=== PATIENT | female | born 1950 | race Hispanic/Latino ===

== ENCOUNTER 2023-06-26 10:44 | Observation (INO) | payer MEDICARE, MEDICAID ==
[2023-06-26] VITALS (45 sets, daily range): BP systolic 74–154; BP diastolic 47–96
[~2023-06-26] VITALS: Ht 152.4 cm; Wt 86.0 kg
--- NOTE | 2023-06-26 11:20 | NUR ---
PT TO ER ROOM 5 VIA WHEELHAIR.
--- NOTE | 2023-06-26 12:00 | NUR ---
WOULD CULTURE COLLECTED AND SENT DOWN TO LAB
--- NOTE | 2023-06-26 12:20 | NUR ---
THIS NURSE AND TECH CLEANED UP PTS WOUND WITH SALINE AND GAUZE.
--- NOTE | 2023-06-26 13:05 | NUR ---
PT RESTING IN BED. EYES CLOSED. PT DENIES ANY NEEDS AT THIS TIME.
[2023-06-26 13:24] LABS: BASO% 0.3 % (0-3); IMMATURE GRANULOCYTES 2.1 % (0.0-5.0); LYMPH% 23.1 % (15-41); MEAN CORPUSCULAR HGB 26.6 pG CALC (26.0-32.0); MONO% 9.5 % (2-13); NEUT# 8.05 thou/uL (2.00-7.15); RED BLOOD COUNT 3.2 mill/uL (4.20-5.60); RED CELL DISTRI WIDTH 16.9 % (11.5-15.5)
[2023-06-26 13:35] LABS: ALBUMIN 3.4 g/dL (3.2-5.0); BILIRUBIN, TOTAL 0.3 mg/dL (0.02-1.3); CREATININE 1.2 mg/dL (0.5-1.0); POTASSIUM 4.1 mmol/l (3.5-5.1)
[2023-06-26 13:43] LABS: HEMATOCRIT 29.3 % (37.0-47.0); HEMOGLOBIN 8.5 g/dl (12.0-16.0); MEAN CELL VOLUME 91.6 fL CALC (80.0-100.0)
--- NOTE | 2023-06-26 14:00 | NUR ---
PT STATES SHE IS HUNGRY. WRAP AND DRINK PROVIDED. PT DENIES ANY OTHER NEEDS.
--- NOTE | 2023-06-26 15:00 | NUR ---
pt resting in bed. pt updated on contiued wait time. pt states understandong and denies any needs at this time.
[2023-06-26 15:24] LABS: URINE BILIRUBIN - DIPSTICK Negative (NEGATIVE); URINE BLOOD DIPSTICK Negative (NEGATIVE); URINE GLUCOSE - DIPSTICK Negative (NEGATIVE); URINE KETONE Negative (NEGATIVE); URINE LEUK ESTERASE Negative (NEGATIVE); URINE PH 5.5 (4.5-8.0); URINE PROTEIN - DIPSTICK Negative (NEG-TRACE); URINE UROBILINOGEN - DIPSTICK 0.2 E.U./dL (0.2)
[2023-06-26 15:29] LABS: URINE COLOR Yellow; URINE NITRITE - DIPSTICK Positive (Negative)
[2023-06-26 15:39] LABS: URINE BACTERIA FEW hpf; URINE RBC 0-2 RBC/hpf (0-5); URINE SQUAMOUS EPITHELIAL CELL FEW EPI/hpf (0-FEW)
--- NOTE | 2023-06-26 16:38 | NUR ---
pt resting in bed. pt denies any needs at this time.
[2023-06-26] MEDS ORDERED: ATORVASTATIN CA20 MG PO (17:01)
[2023-06-26] MEDS ORDERED: LASIX 40 MG TAB40 MG PO (17:01)
[2023-06-26] MEDS ORDERED: LEVOTHYROXIN137 MCG PO (17:01)
--- NOTE | 2023-06-26 17:30 | NUR ---
PT REPORT CALLED AND GIVEN TO WESLEY IN ICU. PT BENG TAKEN UP VIA WHEELCHAIR.
--- NOTE | 2023-06-26 18:00 | NUR ---
PT ARRIVED TO ICU BY WHEELCHAIR MED-SURG OVERFLOW. PT ADMITTED WITH A RIGHT LOWER LEG LACERATION THAT SHE REPORTEDLY SUSTAINED IN APRIL WHILE IN [place]. WOUND IS OPEN TO AIR. WOUND CARE CONSULTED. PT IS A/O. DAUGHTER AT BEDSIDE TO AID WITH LANGUAGE BARRIER. LUNGS CLEAR; PT IS ON RA. HEART SOUNDS S1S2; PT IS NSR ON MONITOR. BP STABLE. ABDOMEN DISTENDED;SOFT. PT REPORTS LAST BM WAS 5 DAYS AGO BUT DENIES ANY PAIN OR DISCOMFORT. PULSES STRONG. SKIN W/D. PT EDUCATED ON FALL PRECAUTIONS AND CALL LIGHT IN REACH. VSS.
--- NOTE | 2023-06-26 19:45 | NUR ---
awake. daughter @ bedside & translates for this securities underwriter. lunchroom monitor shows sinus rhythm. ivf infusing well. po fluids taken well. open wound to rle. amb to br x2 assists then back to bed. nestor well.
--- NOTE | 2023-06-26 23:38 | NUR ---
eyes closed. no distress. marine electronics repairer shows sinus rhythm. family @ bedside.
[2023-06-27] VITALS (19 sets, daily range): BP systolic 91–135; BP diastolic 48–76
--- NOTE | 2023-06-27 04:00 | NUR ---
rn cardiac rehab shows sinus rhythm.
--- NOTE | 2023-06-27 06:30 | NUR ---
lab here. blood drawn
[2023-06-27 06:48] LABS: BASO% 0.3 % (0-3); EOS% 1.3 % (0-8); HEMOGLOBIN 8.1 g/dl (12.0-16.0); IMMATURE GRANULOCYTES 1.4 % (0.0-5.0); MEAN CELL VOLUME 91.5 fL CALC (80.0-100.0); MEAN CORPUSCULAR HGB 26.5 pG CALC (26.0-32.0); MEAN CORPUSCULAR HGB CONC 28.9 g/dL CAL (32.0-36.0); MONO% 8.6 % (2-13); NEUT# 7.7 thou/uL (2.00-7.15); NEUT% 66.4 % (42-76); RED BLOOD COUNT 3.06 mill/uL (4.20-5.60)
[2023-06-27 07:00] LABS: ALBUMIN 3.1 g/dL (3.2-5.0); ALKALINE PHOSPHATASE 95 u/l (38-126); ANION GAP 8 (6-22 (CALC)); BILIRUBIN, TOTAL 0.3 mg/dL (0.02-1.3); BUN 34 mg/dL (8-23); BUN/CREATININE RATIO 34 (12-20 (CALC)); CARBON DIOXIDE 24 mmol/l (22-30); CHLORIDE 114 mmol/l (95-108); GFR FOR AFR.AMER. > 60 ML/MIN (>=60 (CALC)); GFR OTHER RACES 55 ML/MIN (>=60 (CALC)); POTASSIUM 4.6 mmol/l (3.5-5.1); SGOT/AST 22 u/l (9-36); SODIUM 142 mmol/l (137-146); TOTAL PROTEIN 5.6 g/dL (6.3-8.2)
--- NOTE | 2023-06-27 08:00 | NUR ---
REPORT RECIEVED FROM NIGHT RN. PT ADMITTED FOR WOUND ON RIGHT LOWER EXTREMETY. PT IS BELARUSIAN SPEAKING ONLY; FAMILY AT BEDSIDE TO ASSIST WITH BASIC COMMUNICATION NEEDS. PT IS A/O. DENIES ANY PAIN AT THIS TIME. PT ON RA; NO COUGH NOTED. PT IS NSR ON MONITOR. PULSES STRONG. SKIN W/D. IV ACCESS 20G RAC. PT EATING BREAKFAST IN BED.
--- NOTE | 2023-06-27 08:15 | NUR ---
DR. EDDY AT BEDSIDE TO ASSESS PT'S WOUND.
--- NOTE | 2023-06-27 10:38 | NUR ---
DR. LAMAR AT BEDSIDE TO ASSESS WOUND. FAMILY REMAINS AT BEDSIDE.
--- NOTE | 2023-06-27 12:06 | NUR ---
PT SITTING IN BED EATING LUNCH. FAMILY AT BEDSIDE. IV IN RAC WAS LEAKING AND THUS REMOVED. NEW IV STARTED IN RIGHT FOREARM. PT DENIES ANY NEEDS OR PAIN AT THIS TIME. CALL LIGHT IN REACH, VSS.
--- NOTE | 2023-06-27 13:39 | NUR ---
PT ASSISTED TO RESTROOM. PT NOW SITTING IN CHAIR. FAMILY AT BEDSIDE. VSS.
--- NOTE | 2023-06-27 15:53 | NUR ---
PT ASLEEP IN BED. FAMILY AT BEDSIDE. STILL AWAITING VISIT FROM WOUND CARE DOCTOR. VSS.
--- NOTE | 2023-06-27 18:02 | NUR ---
PT ASSISTED TO WALK TO RESTROOM. FAMILY REMAINS AT BEDSIDE.
--- NOTE | 2023-06-27 19:00 | NUR ---
awake. conversation translated per daughter. denies distress. ed tech shows sinus rhythm. ivf infusing well per rfa site. po fluids taken well. family @ bedside. fall precautions cont.
--- NOTE | 2023-06-27 23:00 | NUR ---
amb to br x1 assist. nestor well.
[2023-06-28] VITALS (91 sets, daily range): BP systolic 88–131; BP diastolic 49–84
--- NOTE | 2023-06-28 00:01 | NUR ---
color television console monitor shows sinus rhythm.
--- NOTE | 2023-06-28 03:00 | NUR ---
amb to br x1 assit. nestor well.
--- NOTE | 2023-06-28 04:00 | NUR ---
phototypesetting equipment monitor shows sinus rhythm.
--- NOTE | 2023-06-28 05:40 | NUR ---
lab here. blood drawn.
[2023-06-28 06:02] LABS: BASO% 0.5 % (0-3); EOS% 1.3 % (0-8); HEMOGLOBIN 7.9 g/dl (12.0-16.0); IMMATURE GRANULOCYTES 1.8 % (0.0-5.0); LYMPH% 28.7 % (15-41); MEAN CELL VOLUME 91.8 fL CALC (80.0-100.0); MEAN CORPUSCULAR HGB 26.9 pG CALC (26.0-32.0); MEAN CORPUSCULAR HGB CONC 29.3 g/dL CAL (32.0-36.0); MONO% 10.1 % (2-13); NEUT# 5.44 thou/uL (2.00-7.15); NEUT% 57.6 % (42-76); RED BLOOD COUNT 2.94 mill/uL (4.20-5.60)
[2023-06-28 06:17] LABS: ALBUMIN 2.9 g/dL (3.2-5.0); ALKALINE PHOSPHATASE 95 u/l (38-126); ANION GAP 9 (6-22 (CALC)); BILIRUBIN, TOTAL 0.3 mg/dL (0.02-1.3); BUN 25 mg/dL (8-23); BUN/CREATININE RATIO 30 (12-20 (CALC)); CARBON DIOXIDE 24 mmol/l (22-30); CHLORIDE 113 mmol/l (95-108); CREATININE 0.8 mg/dL (0.5-1.0); GFR FOR AFR.AMER. > 60 ML/MIN (>=60 (CALC)); GFR OTHER RACES > 60 ML/MIN (>=60 (CALC)); MAGNESIUM 2.2 mg/dL (1.6-2.3); POTASSIUM 4.6 mmol/l (3.5-5.1); SGOT/AST 22 u/l (9-36); SODIUM 141 mmol/l (137-146); TOTAL PROTEIN 5.3 g/dL (6.3-8.2)
--- NOTE | 2023-06-28 07:30 | NUR ---
PT ALERT AND ORIENTED, AMBULATED ON UNIT FOR 5 MIN WITH STEADY GAIT AND WALKER. THEN INTO ROOM AND SITTING UP IN RECLINER, DAUGHTER AT BEDSIDE, SET UP ASSIST PROVIDED FOR AM MEAL, IVF INFUSING AT PRESCRIBED RATE, TELE READING SR RATE 84, B/P STABLE COMFORT MEASURES PROVIDED, TOP LINENS CHANGED PER FAMILY REQUEST. WILL CONTINUE TO MONITOR.
--- NOTE | 2023-06-28 08:16 | NUR ---
RECEIVED REPORT FROM SCOOBY MIDDLETON. PT IS SITTING IN CHAIR EATING BREAKFAST. DAUGHTER IN ROOM WITH PT. VSS.
--- NOTE | 2023-06-28 09:50 | NUR ---
ASSESSMENT IS COMPLTED: PT IS SITTING IN THE CHAIR, FAMILY HAS BEEN IN THE ROOM. IV SITE HAS BEEN WORKING,HR IS REG,PULSES ARE STRONG X4,ABD IS SOFT WITH ACTIVE BS. R LEG WOUND IS OPEN TO AIR AT THIS TIME. REMAINS IN SR
--- NOTE | 2023-06-28 12:00 | NUR ---
PT IS SITTING IN THE CHAIR. FAMILY IN THE ROOM. CONTINUE TO OSBERVE AND MONITOR.
--- NOTE | 2023-06-28 14:47 | NUR ---
SPOKE WITH WOUND CARE NURSE RE: ORDERS TO CLARIFY. WAITING ON PHARMACY TO BRING MEDICATION AND WILL ADMINISTER TO R LEG,
--- NOTE | 2023-06-28 16:00 | NUR ---
RECEIVED THE MEDICATION FROM PHARMACY, PLACED IODOSORB ON CALCIUM ALGINATE WRAPPED WTIH KERLIX AND NETTING. PT TOLERATED WELL.
--- NOTE | 2023-06-28 16:05 | NUR ---
pt is resting in bed with no distress noted.
--- NOTE | 2023-06-28 19:45 | NUR ---
PT RESTING NO DISTRESS NOTED ON EXAM. ASSESSMENT DONE. WOUND ON RIGHT LEG DRESSING INTACT NO DRANIAGE. IV SIT CHECKED AND FLUSHED. DAUGHTER AT BEDSIDE. CALL LIGHT WITHIN REACH. PLAN OF CARE ONGOING.
--- NOTE | 2023-06-28 21:00 | NUR ---
PT AMBULATING IN THE [place] INDEPENDENTLY WITH WALKER.
--- NOTE | 2023-06-28 21:49 | NUR ---
PT BACK IN ROOM IN THE RECLINER CHAIR.
[2023-06-29] VITALS (40 sets, daily range): BP systolic 89–126; BP diastolic 42–77
--- NOTE | 2023-06-29 00:30 | NUR ---
PT SLEEPING NO DISTRESS NOTED ON EXAM. DAUGHTER AT BEDSIDE. CALL LIGHT WITIN REACH. PLAN OF CARE ONGOING. IV SITE CHECKED.
--- NOTE | 2023-06-29 02:00 | NUR ---
PT SLEEPING NO DISTRESS NOTED ON EXAM. CALL LIGHT WITHIN REACH. DAUGHTER SLEEPING AT BEDSIDE. PLAN OF CARE ONGOING.
--- NOTE | 2023-06-29 04:45 | NUR ---
PT ASSISTED TO RESTROOM AND BACK TO BED. CALL LIGHT WITHIN REACH. PLAN OF CARE ONGOING.
[2023-06-29 07:53] LABS: BASO% 0.5 % (0-3); EOS% 0.9 % (0-8); HEMATOCRIT 26.8 % (37.0-47.0); HEMOGLOBIN 7.9 g/dl (12.0-16.0); IMMATURE GRANULOCYTES 1.2 % (0.0-5.0); LYMPH% 26.5 % (15-41); MEAN CELL VOLUME 90.8 fL CALC (80.0-100.0); MEAN CORPUSCULAR HGB 26.8 pG CALC (26.0-32.0); MEAN CORPUSCULAR HGB CONC 29.5 g/dL CAL (32.0-36.0); MONO% 9.2 % (2-13); NEUT# 5.94 thou/uL (2.00-7.15); NEUT% 61.7 % (42-76); RED BLOOD COUNT 2.95 mill/uL (4.20-5.60); RED CELL DISTRI WIDTH 16.9 % (11.5-15.5)
--- NOTE | 2023-06-29 08:00 | NUR ---
received report from off going nurse. patient is resting in bed, respirations even and unlabored, patient is on room air. tele monitor reads sinus rhythm, patient is french speaking only, daughter at bedside. patient stated she has no pain. patient is able to ambulate to restroom with minimal assistance. Dressing in place to right lower extremites, dressing is clean, dry and intact
[2023-06-29 08:26] LABS: ALBUMIN 2.9 g/dL (3.2-5.0); ALKALINE PHOSPHATASE 92 u/l (38-126); ANION GAP 7 (6-22 (CALC)); BILIRUBIN, TOTAL 0.3 mg/dL (0.02-1.3); BUN 21 mg/dL (8-23); BUN/CREATININE RATIO 29 (12-20 (CALC)); CARBON DIOXIDE 25 mmol/l (22-30); CHLORIDE 113 mmol/l (95-108); CREATININE 0.7 mg/dL (0.5-1.0); GFR FOR AFR.AMER. > 60 ML/MIN (>=60 (CALC)); GFR OTHER RACES > 60 ML/MIN (>=60 (CALC)); MAGNESIUM 2.1 mg/dL (1.6-2.3); POTASSIUM 4.5 mmol/l (3.5-5.1); SGOT/AST 24 u/l (9-36); SODIUM 140 mmol/l (137-146); TOTAL PROTEIN 5.3 g/dL (6.3-8.2)
--- NOTE | 2023-06-29 10:00 | NUR ---
Assisted patient to bathroom, minimal assistance needed. patient is now sitting in chair, plan to discharge later today with IV ABX with possible PICC line placement
--- NOTE | 2023-06-29 12:00 | NUR ---
PATIENT IS SITTING UP IN THE CHAIR EATING LUNCH, DENIES COMPLAINTS OF PAIN AT THIS TIME, DAUGHTER AT BEDSIDE
--- NOTE | 2023-06-29 13:00 | NUR ---
dressing change completed per orders in MAR
[2023-06-29] MEDS ORDERED: ERTAPENEM1 G1 IV (14:52)
--- NOTE | 2023-06-29 16:00 | NUR ---
patient resting in chair, daughter is at bedside, vital signs stable, no complaints at this time
--- NOTE | 2023-06-29 18:37 | NUR ---
patient given discharge instructions, daughter at bedside, verbalized understanding education, plan to follow up in AM outpt for PICC line placement, verbalized understanding, patient discharged in stable condition
== END 2023-06-29 18:30 ==
LOC: ED 10:44 → ED-I 16:00 → ED 16:06 → ICU 16:07
PROVIDERS: Family Medicine; Student in an Organized Health Care Education/Training Program; ADMIT Student in an Organized Health Care Education/Training Program; ATTEND Student in an Organized Health Care Education/Training Program
DX: L97.919 Non-pressure chronic ulcer of unspecified part of right lower leg with unspecified severity (principal); B96.4 Proteus (mirabilis) (morganii) as the cause of diseases classified elsewhere; N39.0 Urinary tract infection, site not specified; B96.20 Unspecified Escherichia coli [E. coli] as the cause of diseases classified elsewhere; Z16.12 Extended spectrum beta lactamase (ESBL) resistance; E78.00 Pure hypercholesterolemia, unspecified; E03.9 Hypothyroidism, unspecified; D64.9 Anemia, unspecified; E66.9 Obesity, unspecified; Z68.37 Body mass index [BMI] 37.0-37.9, adult
CPT/HCPCS: J1650